=== PATIENT | male | born 1955 | race Caucasian/White ===

== ENCOUNTER 2020-07-17 11:54 | Emergency (ER) | payer SELFPAY ==
[~2020-07-17] VITALS: Ht 170.2 cm; Wt 103.9 kg
[2020-07-17] MEDS ORDERED: ceFAZolin 1GM/50ML 50 ML IV ONE (13:00)
[2020-07-17] MEDS ORDERED: VANCOMYCIN 1GM/250ML 250 ML IV ONE (13:00)
[2020-07-17] MEDS ORDERED: SODIUM CHLORIDE 0.9% 500 ML IV ONE (13:00)
[2020-07-17] MEDS ORDERED: TETANUS-DIPTH-ACEL PERTUSSIS 0.5ML SYR Tdap IM ONE (13:00)
[2020-07-17 15:02] LABS: Basophils # (auto) 0 10 ^3/uL (0-0.2); Basophils % (auto) 0.4 % (0.0-2.0); Eosinophils # (auto) 0 10 ^3/uL (0-0.8)
[2020-07-17 15:06] LABS: Hematocrit 44.6 % (41.0-53.0); Hemoglobin 15.3 g/dL (13.5-17.5); Lymphocytes % (auto) 8.9 % (10.0-50.0); Mean Corpuscular Hgb Conc. 34.3 g/dL (32.0-36.0); Mean Corpuscular Volume 99.1 fL (80.0-100.0); Monocytes # (auto) 0.8 10 ^3/uL (0-1.3); Monocytes % (auto) 7.2 % (0.0-12.0); Neutrophils # (auto) 9.3 10 ^3/uL (1.6-8.6); Neutrophils % (auto) 83.5 % (37.0-80.0); Platelet Count (auto) 194 10^3/uL (140-450); Red Cell Distribution Width 14.1 % (11.8-14.3); White Blood Cell 11.2 10^3/uL (4.4-10.8)
[2020-07-17 15:21] LABS: Albumin 2.9 g/dL (3.4-5.0); Calcium 9.7 mg/dL (8.5-10.1); Potassium 4.1 mmol/L (3.5-5.1)
[2020-07-17 15:26] LABS: BUN/Creatinine Ratio 15.5; Bilirubin, Total 1.5 mg/dL (0.2-1.0); Total Protein 8.4 g/dL (6.4-8.2)
[2020-07-17] MEDS ORDERED: CLINDAMYCIN 600MG IV 50 ML IV ONE (16:15)
[2020-07-17 17:54] VITALS: BP 146/70
== END 2020-07-17 18:03 | disposition short-term general hospital (02) ==
LOC: ER 11:54
DX: S61.451A Open bite of right hand, initial encounter (principal); M86.9 Osteomyelitis, unspecified; I10 Essential (primary) hypertension; Z87.891 Personal history of nicotine dependence; W55.01XA Bitten by cat, initial encounter; Y93.89 Activity, other specified; Y92.89 Other specified places as the place of occurrence of the external cause; Y99.8 Other external cause status
CPT/HCPCS: 36415; 73200; 80053; 85025; 90471; 90715; 96365; 96366; 96368; 99285; J0690; J3370; J3490